=== PATIENT | male | born 1965 | race Caucasian/White ===

== ENCOUNTER 2018-04-18 20:40 | Emergency (ER) | payer OTHER ==
[~2018-04-18] VITALS: Ht 172.7 cm; Wt 93.2 kg
[~2018-04-18 20:40] MED LIST: AMLO-511 PO; ASPI81 PO; ISOS60TA4 PO; METO50 PO; MONT10TA21 PO; NITR.4 SL
[2018-04-18] MEDS ORDERED: TAMS0.4C32 PO (20:50)
[2018-04-18] MEDS ORDERED: LIDOCAINE 2% 5 ML JELLY TP ONE (21:15)
[2018-04-18 21:38] VITALS: BP 142/87
[2018-04-18 21:55] LABS: APPEARANCE,URINE CLEAR (CLEAR); BILIRUBIN,URINE NEGATIVE (NEGATIVE); GLUCOSE, URINE (UA) 100 mg/dL (NEGATIVE); KETONES,URINE NEGATIVE (NEGATIVE); LEUKOCYTE ESTERASE ,URINE MODERATE (NEGATIVE); NITRATE,URINE NEGATIVE (NEGATIVE); OCCULT BLOOD,URINE LARGE (NEGATIVE); PH,URINE 6.5 (5.0-8.0); PROTEIN,URINE POS 1+ (NEGATIVE); UROBILINOGEN,URINE 0.2 mg/dL (<=1.0)
[2018-04-18 22:16] LABS: BACTERIA,URINE Few /HPF (None Seen)
[2018-04-18 22:17] LABS: AMORPHOUS SEDIMENT,UR Few /LPF (None Seen); SQUAMOUS EPITHELIAL CELL,UR Few /LPF (None Seen)
[2018-04-18] MEDS ORDERED: CEPHALEXIN MONOHYDRATE 500 MG CAPSULE PO ONE (22:30)
== END 2018-04-19 00:33 | disposition home or self-care (01) ==
LOC: EMS 20:41
DX: R33.9 Retention of urine, unspecified (principal); I11.9 Hypertensive heart disease without heart failure; I25.10 Atherosclerotic heart disease of native coronary artery without angina pectoris; E78.00 Pure hypercholesterolemia, unspecified; Z95.1 Presence of aortocoronary bypass graft; Z79.82 Long term (current) use of aspirin
CPT/HCPCS: 51702; 87086